=== PATIENT | female | born 1990 ===

== ENCOUNTER 2018-04-26 16:53 | Outpatient (CLI) | payer OTHER ==
[2018-04-26] MEDS ORDERED: PRENATAL TABLE1 EAC1 PO (18:31)
== END 2018-04-27 10:51 | disposition home or self-care (01) ==
LOC: OBS/DEL 16:53
DX: O60.03 Preterm labor without delivery, third trimester (principal); Z34.03 Encounter for supervision of normal first pregnancy, third trimester; O99.013 Anemia complicating pregnancy, third trimester; D64.89 Other specified anemias

== ENCOUNTER 2018-07-14 18:08 | Inpatient (IN) | payer OTHER ==
[~2018-07-14] VITALS: Ht 165.1 cm; Wt 78.5 kg
[~2018-07-14 18:08] MED LIST: PRENATAL TABLE1 EAC1 PO
== END 2018-07-18 12:19 | disposition home or self-care (01) | DRG 788 ==
LOC: SURG-SUITE 18:08 → LDR 18:08 → SURG-SUITE 07-15 18:01
PROVIDERS: ADMIT Obstetrics & Gynecology
PROC: 3E0P7VZ Introduction of Hormone into Female Reproductive, Via Natural or Artificial Opening (ICD-10-PCS; 2018-07-14)
PROC: 4A1HXCZ Monitoring of Products of Conception, Cardiac Rate, External Approach (ICD-10-PCS; 2018-07-14)
PROC: 3E033VJ Introduction of Other Hormone into Peripheral Vein, Percutaneous Approach (ICD-10-PCS; 2018-07-15)
PROC: 10D00Z1 Extraction of Products of Conception, Low, Open Approach (ICD-10-PCS; principal; 2018-07-15 16:30)
DX: O82 Encounter for cesarean delivery without indication (principal); O61.0 Failed medical induction of labor; Z3A.41 41 weeks gestation of pregnancy; Z37.0 Single live birth